=== PATIENT | female | born 1930 | race African-American/Black ===

== ENCOUNTER 2016-11-21 15:57 | Emergency (ER) | payer OTHER ==
[~2016-11-21] VITALS: Ht 162.6 cm; Wt 81.7 kg
[~2016-11-21 15:57] MED LIST: AMLODIPINE BESYL5 MG PO; AMOXICILLIN875 MG PO; ARICEPT 5 MG TAB5 MG PO; ARICEPT10 M1 PO; ASPIR 8181 MG PO; ASPIRIN EC81 M1 PO; ASPIRIN81 M2 PO; AUGMENTIN 875-1 EACH PO; AZELASTINE; BACTRIM 400-801 EACH; CARVEDILOL12.5 MG PO; CARVEDILOL6.25 MG PO; CENTRUM SILVER1 EAC4 PO; CITRATE OF MAG296 ML PO; CLARITIN10 MG PO; COLACE100 MG PO; DEEP SEA NASAL44 M1; DOXYCYCLINE HYC50 MG PO; GLUCOPHAGE1000 MG PO; GLUCOPHAGE500 MG PO; GLUCOTROL5 MG PO; GLYBURIDE 5 MG T5 MG PO; HYDROCHLOROTH12.5 MG PO; IMDUR 30 MG TAB30 M1 PO; IRON325 PO; LANTUS SUBQ; LASIX 40 MG TAB40 MG PO; LEVEMIR FL100 UNIT/2 SUBQ; LISINOPRIL; LORATIDINE 10 M10 M1 PO; METFORMIN; MICARDIS 80 MG80 MG PO; MICARDIS HCT 81 EACH PO; MIRALAX255 GM PO; MUCINEX22 ML; MUCINEX600 MG PO; MULTIVITAMINS PO; NEXIUM 40 MG CA40 M1 PO; PAIN PILL PO; POLYMYXIN B OPHTHALMIC; PRED FORTE 1% EY5 M1 OP; PRED FORTE 1% EY5 M1 OPHTHALMIC; PROTONIX40 M2 PO; TRAMADOL 50 MG50 MG PO; TRIMETHOPRIM OPHTHALMIC; UNICOMPLEX M TA1 TA1; UNICOMPLEX M TA1 TA1 PO; VENTOLIN HFA 1818 GM INH; ZESTRIL20 MG PO; ZESTRIL40 MG PO
== END 2016-11-21 17:31 | disposition home or self-care (01) ==
LOC: ER 15:57
DX: S70.01XA Contusion of right hip, initial encounter (principal); G56.00 Carpal tunnel syndrome, unspecified upper limb; I10 Essential (primary) hypertension; E11.40 Type 2 diabetes mellitus with diabetic neuropathy, unspecified; I50.9 Heart failure, unspecified; Z86.2 Personal history of diseases of the blood and blood-forming organs and certain disorders involving the immune mechanism; Z90.710 Acquired absence of both cervix and uterus; X58.XXXA Exposure to other specified factors, initial encounter; Y93.89 Activity, other specified; Y92.89 Other specified places as the place of occurrence of the external cause; Y99.9 Unspecified external cause status

== ENCOUNTER 2017-03-30 12:56 | Emergency (ER) | payer OTHER ==
[~2017-03-30] VITALS: Ht 160 cm; Wt 63.5 kg
[2017-03-30] MEDS ORDERED: PROCTOFOAM-HC F10 G1 RE (13:27)
[2017-03-30] MEDS ORDERED: TRAMADOL 50 MG50 MG PO (13:39)
== END 2017-03-30 14:10 | disposition home or self-care (01) ==
LOC: ER 12:56
DX: K64.9 Unspecified hemorrhoids (principal); M19.90 Unspecified osteoarthritis, unspecified site; E11.40 Type 2 diabetes mellitus with diabetic neuropathy, unspecified; I10 Essential (primary) hypertension; F03.90 Unspecified dementia, unspecified severity, without behavioral disturbance, psychotic disturbance, mood disturbance, and anxiety; Z86.73 Personal history of transient ischemic attack (TIA), and cerebral infarction without residual deficits; Z86.2 Personal history of diseases of the blood and blood-forming organs and certain disorders involving the immune mechanism; Z90.710 Acquired absence of both cervix and uterus; Z90.89 Acquired absence of other organs

== ENCOUNTER 2018-11-15 15:37 | Emergency (ER) | payer OTHER ==
[~2018-11-15] VITALS: Ht 167.6 cm; Wt 74.4 kg
[~2018-11-15 15:37] MED LIST changes: +PROCTOFOAM-HC F10 G1 RE
[2018-11-15 18:17] LABS: ABSOLUTE NEUTROPHILS 4.2 thou/uL (1.4-8.2); BASOPHILS 0.2 % (0.0-2.0); HEMATOCRIT 42.7 % (37.0-47.0); LYMPHOCYTES 14.3 % (24.0-44.0); MCH 27.1 pg (26.0-34.0); MCHC 32.8 g/dL (28.0-37.0); MCV 82.5 fL (80.0-100.0); MONOCYTES 7.2 % (1.0-8.0); PLATELET COUNT 220 thou/uL (150-400); POLYS 78.3 % (36.0-66.0); RBC 5.17 mil/uL (4.20-5.00); RDW 16.3 % (10.5-14.5); WBC 5.4 thou/uL (4.0-11.0)
[2018-11-15 18:30] LABS: CALCIUM 8.7 mg/dL (8.5-10.1); CREATININE 1.4 mg/dL (0.6-1.0); POTASSIUM 3.6 mmol/L (3.5-5.1)
[2018-11-15 18:36] LABS: ALBUMIN 3.4 g/dL (3.4-5.0); TOTAL BILIRUBIN 0.5 mg/dL (<0.1-1.0)
[2018-11-15 19:25] LABS: URINE CLARITY HAZY; URINE COLOR YELLOW
[2018-11-15 19:26] LABS: URINE BILIRUBIN NEGATIVE (Negative); URINE BLOOD NEGATIVE (Negative); URINE GLUCOSE-RANDOM* NEGATIVE (Negative); URINE KETONES NEGATIVE (Negative); URINE LEUKOCYTES-REFLEX NEGATIVE (Negative); URINE NITRITE-REFLEX POSITIVE (Negative); URINE PROTEIN (DIPSTICK) TRACE (Negative); URINE UROBILINOGEN 0.2 E.U./dl (0.2-1.0)
[2018-11-15 19:28] LABS: BACTERIA-REFLEX >30 Many /HPF (None Seen); SQUAMOUS 4-10 Moderate /LPF (0-3); URINE RBC None Seen /HPF (0-2); URINE WBC-REFLEX 0-5 Rare /HPF (0-5)
[2018-11-15 19:29] LABS: CASTS None Seen /LPF (None Seen); CRYSTALS None Seen /LPF (None Seen)
[2018-11-15 20:34] VITALS: BP 143/81
== END 2018-11-15 20:34 | disposition home or self-care (01) ==
LOC: ER 15:37
PROVIDERS: Emergency Medicine
DX: E86.0 Dehydration (principal); E11.22 Type 2 diabetes mellitus with diabetic chronic kidney disease; I12.9 Hypertensive chronic kidney disease with stage 1 through stage 4 chronic kidney disease, or unspecified chronic kidney disease; N18.9 Chronic kidney disease, unspecified; R53.1 Weakness; E11.40 Type 2 diabetes mellitus with diabetic neuropathy, unspecified; M19.90 Unspecified osteoarthritis, unspecified site; F03.90 Unspecified dementia, unspecified severity, without behavioral disturbance, psychotic disturbance, mood disturbance, and anxiety; Z90.710 Acquired absence of both cervix and uterus; Z86.73 Personal history of transient ischemic attack (TIA), and cerebral infarction without residual deficits; Z86.2 Personal history of diseases of the blood and blood-forming organs and certain disorders involving the immune mechanism; Z79.4 Long term (current) use of insulin